=== PATIENT | female | born 1940 | race Caucasian/White ===

== ENCOUNTER 2020-08-23 17:51 | Emergency (ER) | payer MEDICARE ==
[~2020-08-23 17:51] MED LIST: CATAPRES 0.1MG0.1 MG PO; HYDROCHLOROTHIA50 MG PO; JARDIANCE10 MG PO; MOBIC15 MG PO; NEURONTIN 300300 MG PO; NORCO 5-325 TA1 EACH PO; PRAVACHOL80 MG PO; SYNTHROID88 MCG PO; ULTRAM50 MG PO; VALIUM 10 MG TA10 MG PO; ZOLOFT100 MG PO
[2020-08-23 19:03] LABS: HEMOGLOBIN 11.4 gm/dl (12.3-15.3); RED BLOOD COUNT 3.92 M/UL (4.00-5.10); WHITE BLOOD COUNT 7.8 K/UL (4.5-11.0)
[2020-08-23 19:28] LABS: BUN/CREATININE RATIO 17 (0-10)
== END 2020-08-23 21:33 | disposition home or self-care (01) ==
LOC: ER1 17:51
PROVIDERS: Physician Assistant
DX: S80.11XA Contusion of right lower leg, initial encounter (principal); I10 Essential (primary) hypertension; E11.9 Type 2 diabetes mellitus without complications; Z79.899 Other long term (current) drug therapy; X58.XXXA Exposure to other specified factors, initial encounter; M79.661 Pain in right lower leg
CPT/HCPCS: 80053; 82550; 82553; 83874; 84484; 85025; 85379; 85610; 85730; 93005; 93926; 93971; 99284

== ENCOUNTER → 2021-01-13 | Outpatient (CLI) | payer MEDICARE | LOC: HEART CORB 09:05 | DX: R94.31 Abnormal electrocardiogram [ECG] [EKG] (principal); R06.02 Shortness of breath; E11.9 Type 2 diabetes mellitus without complications; I10 Essential (primary) hypertension; E78.5 Hyperlipidemia, unspecified | CPT/HCPCS: 78452; A9502; J2785 ==